=== PATIENT | male | born 1990 | race Caucasian/White ===

== ENCOUNTER 2024-08-01 13:40 | Outpatient (CLI) | payer OTHER | END 2024-08-01 13:41 | disposition home or self-care (01) | LOC: CSHMRI 13:40 | PROVIDERS: ATTEND Physician Assistant | DX: R16.0 Hepatomegaly, not elsewhere classified (principal); K76.0 Fatty (change of) liver, not elsewhere classified; K76.89 Other specified diseases of liver; K86.2 Cyst of pancreas | CPT/HCPCS: 74183 ==

== ENCOUNTER 2025-03-30 17:12 | Emergency (ER) | payer OTHER ==
[~2025-03-30 17:12] MED LIST: Iopamidol 300 61% 100 ML VIAL FS ONE
[2025-03-30] MEDS ORDERED: Ondansetron PF 4 MG/2 ML Vial ONE (17:58)
[2025-03-30 18:22] LABS: #Basophils 0.05 10x3/uL (0.0-0.2); #Eosinophils 0.07 10x3/uL (0.0-0.5); #Monocytes 0.73 10x3/uL (0.0-1.1); #Neutrophils 8.49 10x3/uL (1.5-8.4); %Basophils 0.5 % (0.0-2.0); %Eosinophils 0.6 % (0.0-6.0); %Lymphocytes 13.8 % (18.0-47.0); %Monocytes 6.7 % (0.0-10.0); %Neutrophils 77.9 % (40.0-75.0); Hematocrit 43.6 % (38.8-50.0); Hemoglobin 14.6 g/dL (13.5-17.5); Mean Corpuscular Hemoglobin 28.3 pg (27.0-33.0); Mean Corpuscular Volume 84.5 fL (81.2-95.1); Platelet Count 255 10x3/uL (150-450); Red Blood Cell (RBC) Count 5.16 10x6/uL (4.32-5.72); White Blood Cell (WBC) Count 10.89 10x3/uL (3.5-10.5)
[2025-03-30 18:39] LABS: ALT (SGPT) 27 U/L (Less than 45); AST (SGOT) 28 U/L (11-34); Albumin 4.2 g/dL (3.1-4.5); Alkaline Phosphatase 75 U/L (40-110); Anion Gap 12 mmol/L (10-20); BUN (Urea Nitrogen) 12 mg/dL (8.9-20.6); Bilirubin, Total 1.3 mg/dL (0.3-1.2); Calc. Creatinine Clearance 0 mL/min (70-130); Calcium 9.2 mg/dL (7.8-10.44); Carbon Dioxide 25 mmol/L (22-29); Chloride 106 mmol/L (98-107); Globulin 3.3 g/dL (2.4-3.5); Glucose 96 mg/dL (70-105); Lipase 17 U/L (8-78); Potassium 4.2 mmol/L (3.5-5.1); Sodium 139 mmol/L (136-145)
[2025-03-30 19:04] LABS: Glucose, Urine (Dipstick) Normal (Negative); Leukocyte Negative (Negative); Protein, Urine (Dipstick) 30 mg/dl (Neg-Trace); Specific Gravity, Urine 1.015 (1.005-1.030)
[2025-03-30 19:12] LABS: Bacteria/HPF Rare-Few HPF (None Seen); CAUTI Indications for Culture Dysuria,urgency,freq; RBC/HPF 21-50 HPF (0-3); WBC/HPF 0-3 HPF (0-3)
[2025-03-30 19:13] LABS: Mucous/LPF 1+ LPF (<2+); Urine Culture Reflex No No
== END 2025-03-30 20:09 | disposition home or self-care (01) ==
LOC: CSHERS 17:12
DX: N13.2 Hydronephrosis with renal and ureteral calculous obstruction (principal); I10 Essential (primary) hypertension
CPT/HCPCS: 74177; 80053; 81001; 83690; 85025; 96374; 96375; J2270; J2405; Q9967